=== PATIENT | male | born 1995 | race Two or more races ===

== ENCOUNTER 2021-08-03 10:09 | Emergency (ER) | payer OTHER ==
[~2021-08-03] VITALS: Ht 182.9 cm; Wt 65.8 kg
[2021-08-03 10:20] VITALS: BP 133/89
== END 2021-08-03 10:33 ==
LOC: ER 10:09
DX: R51.9 Headache, unspecified (principal); M54.2 Cervicalgia; F12.10 Cannabis abuse, uncomplicated